=== PATIENT | female | born 1945 | race Caucasian/White ===

== ENCOUNTER 2017-05-22 10:53 | Emergency (ER) | payer OTHER ==
[2017-05-22 11:08] VITALS: BP 155/101; BMI 35.2
--- NOTE | 2017-05-22 11:11 | PDOC ---
History of Present Illness - General Chief Complaint: CVA/TIA Stated Complaint: FACIAL DROOP, SLURRED SPEECH Time Seen by Provider: 05/22/17 11:10 History Source: Patient, Family Exam Limitations: No Limitations - History of Present Illness Initial Comments: 05/22/17 11:44 Pt is a 71 yo F with PMHx of disc trauma s/p remote fall now presenting with facial droop x 1 day and increased R eye burning. The pt was sitting up yesterday at 8.30am in [place] writing when she suddenly noticed drooping of her mouth to the L side with slurring of speech. There was no loss of consciousness, no seizures, no fever, no hx of hearing impairment or bug bite. Pt denies loss of sensation on the face. This morning, she noticed redness and stinging of her R eye, which was not present earlier. She immediately called her PMD in the and daughter, but did not seek health care in [facility]. She was immediately booked for a flight and arrived this am to the ED from the airport. Pt describes a new onset shoulder discomfort which she thinks is stress related. No fever, no palpitations, SOB, orthopnea, PND, pedal edema or CP. No dysuria or flank pain, no abdominal pain, nausea or vomiting. Pt has had weakness of the L side of her body since her work related injury in 2007 with damage to her S1 disc and had a recent mechanical fall one month ago while in [facility], due to the weakness. No previous CAD, HTN hx, but px has been noted to be prediabetic. She has more than a 40year/pack hx of cigarettes but quit 10years ago. Px is not on anticoagulation or aspirin but has been using NSAIDs for the chronic pain in the R knee since the fall. Timing/Duration: 24 hours Severity: mild Associated Symptoms: reports: cough. denies: chest pain, fever/chills, loss of appetite, nausea/vomiting, rash, seizure, shortness of breath, syncope Past History - Travel Traveled outside of the country in the last 30 days: Yes If so, where?: [place], came in this am Close contact w/someone who was outside of country & ill: No - Past Medical History Allergies/Adverse Reactions: Allergies Allergy/AdvReac Type Severity Reaction Status Date / Time Penicillins Allergy Verified 05/22/17 11:01 Home Medications: Ambulatory Orders Ocular Lubricant Ophth Oint [Lacri-Lube S.o.p -] 1 applic OD TID PRN #7 tube predniSONE [Deltasone -] 60 mg PO DAILY 3 Days #3 tablet 05/22/17 CVA: No COPD: No Psychiatric Problems: Yes (anxiety) Other medical history: left sided weakness s/p back injury s1,l3,l4,l5 - Surgical History Abdominal Surgery: Yes (ectopic ) - Suicide/Smoking/Psychosocial Hx Smoking History: Never smoked Have you smoked in the past 12 months: No Information on smoking cessation initiated: No Hx Alcohol Use: No Drug/Substance Use Hx: No Substance Use Type: None Review of Systems - Review of Systems Able to Perform ROS?: Yes Is the patient limited Greek proficient: No Constitutional: Yes: Weakness (R side of face). No: Chills, Diaphoresis, Fever , Loss of Appetite, Night Sweats HEENTM: Yes: Recent change in vision (dry and red R eye). No: Blurred Vision, Tearing, Nose Congestion, Nose Bleeding, Hearing Loss, Throat Pain Respiratory: Yes: Cough. No: Orthopnea, Shortness of Breath, SOB at Rest, Stridor, Wheezing, Hemoptysis Cardiac (ROS): No: Chest Pain, Edema, Palpitations, Syncope, Chest Tightness ABD/GI: No: Abdominal Distended, Difficulty Swallowing, Nausea, Poor Appetite, Vomiting : No: Burning, Dysuria, Hematuria, Incontinence Musculoskeletal: Yes: Joint Pain (R knee pain and swelling s/p fall one month ago), Joint Stiffness (Posterior discs s/p fall 10years ago) Integumentary: No: Bruising Neurological: Yes: Weakness (weakness of R side of face). No: Headache, Paresthesia, Seizure, Tremors *Physical Exam - Vital Signs Last Vital Signs Temp Pulse Resp BP Pulse Ox 98.3 F 98 H 16 155/101 100 05/22/17 11:01 05/22/17 11:01 05/22/17 11:01 05/22/17 11:01 05/22/17 11:01 - Physical Exam General Appearance: Yes: Appropriately Dressed. No: Apparent Distress HEENT: positive: Muffled/Hoarse voice (slurred speech ), Hearing Grossly Normal , Other (dry R eye). negative: Nasal Congestion, Sinus Tenderness Neck: positive: Supple Respiratory/Chest: positive: Lungs Clear, Normal Breath Sounds. negative: Rales , Wheezing Cardiovascular: positive: Regular Rate, S1, S2, Tachycardia Gastrointestinal/Abdominal: positive: Normal Bowel Sounds, Soft. negative: Tender Musculoskeletal: negative: CVA Tenderness Integumentary: positive: Warm Neurologic: positive: Fully Oriented, Alert, Motor Strength 5/5 (On UE bilaterally, LE- L hip mild restriction, power 4/5, no drift, RLE with swollen knee, 4/5 strength) Deep Tendon Reflexes: Bicep (L): 2+, Bicep (R): 2+ ED Treatment Course - LABORATORY CBC & Chemistry Diagram: 05/22/17 13:10 05/22/17 13:10 Medical Decision Making - Medical Decision Making 05/22/17 12:36 Pt is 66, with over a 40pack year smoking hx, quit 10years ago, and prediabetic. 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 Will do an EKG, CXR, CBC, CMP, trops, She also requested an MRI, saying that she got an Xray done for her R knee in [place] I explained to her that she most likely has osteoarthritis of the R knee after the fall and injury a month earlier and an MRI is not the first line and will likely not change mx for her which should be pain control and following up with a child neurologist as an outpx she is willing to be referred to a child neurologist at discharge 2mg iv morphine given 05/22/17 13:10 05/22/17 14:55 CBC, CMP, Xray of knee, CXR did not show acute pathology Plan is to discharge on prednisone, to follow up with PCP and give consult for child neurologist *DC/Admit/Observation/Transfer Diagnosis at time of Disposition: Ulloa's paralysis - Discharge Dispostion Disposition: HOME Admit: No - Prescriptions Prescriptions: Ocular Lubricant Ophth Oint [Lacri-Lube S.o.p -] 1 applic OD TID PRN #7 tube PRN Reason: Dry Eyes predniSONE [Deltasone -] 60 mg PO DAILY 3 Days #3 tablet - Referrals Referrals: Zoila Sinha [Primary Care Provider] - Bryson Sellers MD [Staff Physician] - 14 days - Patient Instructions Printed Discharge Instructions: DI for Ulloa's Palsy Additional Instructions: You were seen here for weakness of the R side of your face. We did tests on you that showed you did not have a stroke. We made an assessment of Ulloa's Palsy. You are to take 60mg of Prednisone (steroid) by mouth for the next 3 days. You already received a dose of prednisone for today, so resume the next dose tomorrow. You may exercise your face by massaging it You may use lucrilube on your eye as artificial lubrication to reduce the dryness Follow up with your primary care doctor in a week or two For your swollen R knee, you should call Dr Sellers's office (D[facility] Assistant Teacher) to follow up for osteoarthritis If you have new worsening weakness of your face or half of your body, or have chest pain or shortness of breath, return to the emergency department - Post Discharge Activity - Attestations Physician Attestion: 05/22/17 15:24 Selina Estrada MD
--- NOTE | 2017-05-22 12:05 | PDOC ---
Attending Attestation - HPI HPI: 05/22/17 12:25 The patient is a 71 year old female, with a significant past medical history of S1 disc trauma s/p remote fall in 2007 (weakness secondary to the trauma), chronic pain in the knee, and prediabetic, who presents to the emergency department with, facial droop and associated right eye burning. As per patient , yesterday morning she was out of the country in [place] when the left sided onset of facial drooping and slurred speech. The patient reports this morning, an onset of right eye redness with associated stinging. She reports calling her PCP who advised her to come to the ED for further evaluation. She reports booking a flight and coming to the emergency department immediately post flight without seeking medical attention in the [place]. Secondary to her symptoms, the patient reports shoulder discomfort which she speculates is due to stress. She denies any hearing impairments. She denies any bug bites. She denies any loss of sensation to the face. She denies recent fevers, chills, headache or dizziness. She denies recent nausea, vomit, diarrhea or constipation. She denies recent dysuria, frequency, urgency or hematuria. She denies recent chest pain or shortness of breath. Allergies: Penicillins. Past surgical history: None reported. Social history: Former Smoker (Quit 10 years ago, smoker for 40 years). Denies EtOH use and recreational drug use. <Shahid Farris - Last Filed: 05/22/17 12:25> - Resident Resident Name: Selina Estrada I - ED Attending Attestation I have performed the following: I have examined & evaluated the patient, The case was reviewed & discussed with the resident, I agree w/resident's findings & plan, Exceptions are as noted - Physicial Exam PE: GENERAL: Awake, alert, and fully oriented, in no acute distress HEAD: No signs of trauma EYES: PERRLA, EOMI, sclera anicteric, conjunctiva clear ENT: Auricles normal inspection, hearing grossly normal, nares patent, oropharynx clear without exudates. Moist mucosa NECK: Normal ROM, supple, no lymphadenopathy, JVD, or masses LUNGS: Breath sounds equal, clear to auscultation bilaterally. No wheezes, and no crackles HEART: Regular rate and rhythm, normal S1 and S2, no murmurs, rubs or gallops ABDOMEN: Soft, nontender, normoactive bowel sounds. No guarding, no rebound. No masses EXTREMITIES: Normal range of motion, no edema. No clubbing or cyanosis. No cords, erythema, or tenderness NEUROLOGICAL: R facial droop sparing forehead. Remainder of neuro exam wnl. SKIN: Warm, Dry, normal turgor, no rashes or lesions noted. 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 Lacrilube for eye discomfort. Recommended taping it shut at night if it is hard to sleep. <Soila Pacheco - Last Filed: 05/22/17 13:01> Attestations - Attestations 05/22/17 12:25 Documentation prepared by Shahid Farris, acting as medical technician assistant for Soila Pacheco MD. <Shahid Farris - Last Filed: 05/22/17 12:25>
[2017-05-22] MEDS ORDERED: OCULAR LUBRICANT OPHTHALMIC OINTMENT 7 GM TUBE OD ONE (12:09)
[2017-05-22] MEDS ORDERED: predniSONE 20 MG TABLET (UD) PO ONE (12:12)
[2017-05-22] MEDS ORDERED: OCULAR LUBRICANT OPHTHALMIC OINTMENT 7 GM TUBE OU ONE (12:14)
[2017-05-22] MEDS ORDERED: predniSONE 20 MG TABLET (UD) ONE (12:52)
[2017-05-22] MEDS ORDERED: morphine CARPU-JECT 2 MG/1 ML DISP.SYRIN IVPUSH ONE ×2 (12:53→15:30)
[2017-05-22] MEDS ORDERED: morphine SULFATE 4 MG/ML VIAL ONE (13:02)
[2017-05-22 13:39] LABS: BASO % 1.2 % (0-2.0); HEMOGLOBIN 13.9 GM/dL (10.7-15.3); LYMPH % 34.1 % (8-40); MCHC 33.1 g/dl (32.0-36.0); MEAN CELL VOLUME 84.5 fl (80-96); MEAN PLT VOLUME 9.4 fl (7.5-11.1); MONO % 4.8 % (3.8-10.2); NEUT % 56.9 % (42.8-82.8); PLATELET COUNT 342 K/MM3 (134-434); RBC 4.98 M/mm3 (3.60-5.2); RDW 14.2 % (11.6-15.6); WHITE BLOOD COUNT 9.5 K/mm3 (4.0-10.0)
[2017-05-22 14:05] LABS: ALK PHOS 155 U/L (45-117); ANION GAP 8 (8-16); BILIRUBIN,TOTAL 0.3 mg/dL (0.2-1.0); BLOOD UREA NITROGEN 15 mg/dL (7-18); CALCIUM 9.7 mg/dL (8.5-10.1); CHLORIDE 106 mmol/L (98-107); CO2 26 mmol/L (21-32); CREATININE 0.6 mg/dL (0.55-1.02); GLUCOSE,RANDOM 139 mg/dL (74-106); SGOT/AST 32 U/L (15-37); SGPT/ALT 44 U/L (12-78); SODIUM 140 mmol/L (136-145); TOT PROT 7.8 g/dl (6.4-8.2)
[2017-05-22 15:20] VITALS: PULSE 93; TEMP 97.9
[2017-05-22] MEDS ORDERED: OCULAR LUBRICANT OPHTHALMIC OINTMENT 7 GM TUBE OD PRN (15:21)
[2017-05-22] MEDS ORDERED: MORPHINE SULFATE 10 MG/1 ML *VIAL ONE (15:30)
[2017-05-23] MEDS ORDERED: predniSONE 20 MG TABLET (UD) PO SCH (10:00)
--- NOTE | 2017-05-23 12:25 | EKG ---
Test Reason : Blood Pressure : / mmHG Vent. Rate : 085 BPM Atrial Rate : 085 BPM P-R Int : 158 ms QRS Dur : 074 ms QT Int : 402 ms P-R-T Axes : 050 008 079 degrees QTc Int : 478 ms NORMAL SINUS RHYTHM POSSIBLE INFERIOR INFARCT , AGE UNDETERMINED ABNORMAL ECG NO PREVIOUS ECGS AVAILABLE Confirmed by HADLEY CORONADO MD ([id number]) on 05/23/2017 12:25:28 PM Referred By: Confirmed By:HADLEY CORONADO MD
[2017-05-29] MEDS ORDERED: predniSONE 20 MG TABLET (UD) PO SCH (10:00)
[2017-05-31] MEDS ORDERED: predniSONE 20 MG TABLET (UD) PO SCH (10:00)
== END 2017-05-22 15:46 | disposition home or self-care (01) ==
LOC: JER 10:53
DX: G51.0 Bell's palsy (principal); R73.03 Prediabetes; F41.9 Anxiety disorder, unspecified; R53.1 Weakness; M25.569 Pain in unspecified knee; G89.29 Other chronic pain
CPT/HCPCS: 36415; 70450-TC; 71045-TC-FY; 73562-TC-RT-FY; 80053; 82962; 84484; 85025; 93005; 93010; 99283-25

== ENCOUNTER 2017-11-17 08:36 | Day surgery (SDC) | payer OTHER ==
[2017-11-11 12:29] VITALS: BMI 35.3
--- NOTE | 2017-11-17 09:28 | OP ---
Operative Note - Note: Operative Date: 11/17/17 Pre-Operative Diagnosis: right knee osteochondral lesion and meniscal tear Operation: right knee arthroscopy with partial medial meniscectomy, drilling of osteochondral lesion Post-Operative Diagnosis: Same as Pre-op Surgeon: Bruno Acosta Anesthesiologist/COUNSELING CENTER DIRECTOR: Jason Cottrell Anesthesia: General Operative Report Dictated: Yes
[2017-11-17] MEDS ORDERED: MIDAZOLAM HCL 2 MG/2 ML SINGLE DOSE VIAL ONE (10:56)
[2017-11-17] MEDS ORDERED: PROPOFOL 20 ML ONE (10:56)
[2017-11-17] MEDS ORDERED: LIDOCAINE HCL 2% JELLY (5 ML/TUBE) ONE (11:13)
[2017-11-17] MEDS ORDERED: DEXAMETHASONE SOD PHOSPHATE 4 MG/1 ML VIAL ONE (11:18)
[2017-11-17] MEDS ORDERED: KETOROLAC TROMETHAMINE 30 MG/1 ML VIAL ONE (11:18)
[2017-11-17] MEDS ORDERED: ONDANSETRON 4 MG/2 ML VIAL ONE (11:18)
[2017-11-17] MEDS ORDERED: ceFAZolin SODIUM 1 GM VIAL ONE (11:18)
[2017-11-17] MEDS ORDERED: NITROGLYCERIN SUBLINGUAL 1/150 0.4 MG TAB SL ONE (12:00)
[2017-11-17] MEDS ORDERED: MORPHINE SULFATE 2 MG/ML VIAL IVPUSH PRN (12:00)
[2017-11-17] MEDS ORDERED: ASPIRIN 81 MG CHEWABLE TABLETS PO ONE (12:00)
[2017-11-17] MEDS ORDERED: METOPROLOL TARTRATE 5 MG/5 ML VIAL IVPUSH ONE (12:00)
[2017-11-17] MEDS ORDERED: CALCIUM GLUCONATE 10% - 1,000 MG/10 ML VIAL ONE (12:19)
[2017-11-17] MEDS ORDERED: NITROGLYCERIN SUBLINGUAL 1/150 0.4 MG TAB ONE (12:41)
[2017-11-17] MEDS: morphine CARPU-JECT 10 MG/1 ML DISP.SYRIN ONE ×2 (12:45→13:00)
[2017-11-17] MEDS ORDERED: ASPIRIN 81 MG CHEWABLE TABLETS ONE (12:45)
[2017-11-17] MEDS: METOPROLOL TARTRATE 5 MG/5 ML VIAL ONE ×2 (12:50→12:55)
--- NOTE | 2017-11-17 12:58 | OP ---
DATE OF OPERATION: 11/17/2017 SURGEON: Bruno Acosta MD PREOPERATIVE DIAGNOSIS: Right knee meniscal tear, osteochondral lesion. POSTOPERATIVE DIAGNOSIS: Right knee meniscal tear, osteochondral lesion. PROCEDURE: Right knee arthroscopy with partial medial meniscectomy, subchondral drilling of osteochondral lesion. INDICATIONS: This is a pleasant 72-year-old female who has been suffering from medial right knee pain. Despite extensive conservative care, she failed to improve. Treatment options were discussed including nonoperative management, continuation with further injections, medications, therapy, activity modification, protective weightbearing. We discussed operative management with arthroscopy. I reiterated that this is not a curative procedure for the arthritis, rather trying to give her comfort for some time, so that she can put off having a total knee replacement. I reviewed the recovery from surgery. I reviewed surgical risks such as bleeding, infection, neurovascular injury, need for further surgery, postoperative pain or stiffness, progression of arthritis. We discussed medical risks such as heart attack, stroke, DVT, PE, and . I reviewed the perioperative use of antibiotics and DVT prophylaxis. I addressed all the patients questions and concerns. She voiced understanding and elected to proceed. DESCRIPTION OF PROCEDURE: The patient was brought to the operating room where general anesthesia was administered. She was prepped and draped in the usual sterile fashion. A preoperative dose of antibiotics was given, and the usual time-out procedure was performed. The right lower extremity was then marked out. Portal sites were injected subcutaneously with 0.25% Marcaine. The lateral portal was established using an 11 blade. The arthroscope was now passed into the knee joint. Examination of the patellofemoral joint demonstrated diffuse high grade partial chondral thickness loss. Passing the arthroscope into the medial compartment, a medial portal was established under spinal needle localization. Medial compartment demonstrated diffuse moderate articular change with high grade partial thickness chondral loss. An osteochondral lesion was noted in the more anterior portion of the medial femoral condyle. This was debrided of the overlying unstable cartilage. The meniscus was noted to have a high grade radial tear at the posterior horn. This was debrided utilizing meniscal biters and a shaver. The lateral compartment was inspected demonstrating no significant articular wear and no meniscal tear. The arthroscope was now passed back into the medial side. Here, 0.062 and 0.045 K-wires were used to create subchondral drilling into the area of the osteochondral lesion. At this point, the excess fluid was withdrawn from the joint. The portals were sutured using 3-0 nylon. Sterile dressings were placed. The patient was extubated and transferred to the recovery room in stable condition. Jaquan CORONA/[id number]
--- NOTE | 2017-11-17 14:55 | CON.CARD ---
Consult Consult Specialty:: Cardiology Referred by:: Anita Reason for Consultation:: chest tightness, bradycardia - History of Present Illness Chief Complaint: chest tightness History of Present Illness: 72F h/o DM, anxiety, depression p/w bradycardia, chest tightness after arthroscopic knee surgery today. Did well during surgery, no events, per report from Dr. Howard, anesthesiologist and PACU staff, pt was hypotensive after surgery during recovery 89/47 with HR 70s-80s, became more hypotensive and HR dropped to 40s. Tele strips not available from that time, reviewing vital signs strip HR slowly decreased from 80 to 60. In this time recorded BPs 60s/ 40s, improved with ephedrine however HR initially continued to decrease to 48 bpm. reviewed tele strip print out showing four beats of junctional rhythm with aberrant conduction followed by sinus rhythm. 12 lead EKG sinus rhythm. Patient no longer complaining of chest tightness or shortness of breath, initial trop negative. - History Source History Provided By: Patient - Past Medical History Endocrine: Yes: Diabetes Mellitus - Alcohol/Substance Use Hx Alcohol Use: No - Smoking History Smoking history: Former smoker Have you smoked in the past 12 months: No If you are a former smoker, when did you quit?: 1980S Home Medications - Allergies Allergies/Adverse Reactions: Allergies Allergy/AdvReac Type Severity Reaction Status Date / Time Penicillins Allergy Intermediate Itching Verified 11/17/17 09:40 - Home Medications Home Medications: Ambulatory Orders Amitriptyline HCl [Elavil -] 10 mg PO HS 11/11/17 Diazepam [Valium] 5 mg PO HS 11/11/17 Gabapentin 300 mg PO TID 11/11/17 Metformin HCl [Metformin HCl ER] 1,000 mg PO BID 11/11/17 Nabumetone 750 mg PO BID 11/11/17 Zolpidem Tartrate [Ambien] 5 mg PO HS 11/11/17 Family Disease History - Family Disease History Family History: Unremarkable Review of Systems - Review of Systems Constitutional: reports: No Symptoms Eyes: reports: No Symptoms HENT: reports: No Symptoms Neck: reports: No Symptoms Cardiovascular: reports: Chest Pain, Shortness of Breath Respiratory: reports: No Symptoms Gastrointestinal: reports: No Symptoms Genitourinary: reports: No Symptoms Musculoskeletal: reports: No Symptoms Integumentary: reports: No Symptoms Neurological: reports: No Symptoms Endocrine: reports: No Symptoms Hematology/Lymphatic: reports: No Symptoms Psychiatric: reports: No Symptoms Vital Signs: Vital Signs Temperature 97.9 F 11/17/17 13:40 Pulse Rate 94 H 11/17/17 14:30 Respiratory Rate 16 11/17/17 14:30 Blood Pressure 117/77 11/17/17 14:30 O2 Sat by Pulse Oximetry (%) 97 11/17/17 14:30 Constitutional: Yes: Well Nourished, No Distress, Calm Eyes: Yes: Conjunctiva Clear, EOM Intact HENT: Yes: Atraumatic, Normocephalic Neck: Yes: Supple, Trachea Midline Respiratory: Yes: Regular, CTA Bilaterally Gastrointestinal: Yes: Normal Bowel Sounds, Soft Cardiovascular: Yes: Regular Rate and Rhythm JVD: No Carotid Bruit: No Heart Sounds: Yes: S1, S2 Musculoskeletal: No: Back Pain Extremities: No: Cyanosis, Erythema Edema: No Peripheral Pulses: 2+ Left Doralis Pedis, 2+ Right Dorsalis Pedis Integumentary: No: Jaundice Neurological: Yes: Alert, Oriented ...Motor Strength: WNL Psychiatric: Yes: Alert, Oriented - Other Data Labs, Other Data: Troponin, BNP 11/17/17 13:10 Troponin I < 0.03 Troponin, BNP 11/17/17 13:10 Troponin I < 0.03 Assessment/Plan EKG 11/17/17 sinus tachycardia, old inferior infarct tele: 4 beats wide complex junctional rhythm followed by sinus rhythm 72F h/o DM, anxiety, depression p/w bradycardia, chest tightness after arthroscopic knee surgery bradycardia, chest tightness, hypotension - may be vagal response vs 2/2 anesthesia in post operative setting vs electrolyte abnormality - trop neg x 1, patient to be admitted to tele for rule out - BP, HR stable now, CP resolved - echo ordered - check lytes, pending DM - manage per primary - on metformin at home s/p knee surgery - manage per primary
[2017-11-17] MEDS ORDERED: CALCIUM CHLORIDE 1 GM/10 ML *DISP.SYRIN IVPUSH ONE (16:42)
[2017-11-17] MEDS ORDERED: ePHEDrine SULFATE 50 MG/1 ML AMPULE IVPUSH PRN (16:43)
[2017-11-17] MEDS ORDERED: PROMETHAZINE HCL 25 MG/1 ML VIAL IVPB PRN (16:45)
[2017-11-17] MEDS ORDERED: ONDANSETRON 4 MG/2 ML VIAL IVPUSH PRN (16:45)
[2017-11-17] MEDS ORDERED: ACETAMINOPHEN 325 MG TABLET (FP) PO PRN (17:12)
[2017-11-17 19:50] LABS: BASO % 0.3 % (0-2.0); HEMATOCRIT 38.2 % (32.4-45.2); HEMOGLOBIN 12.4 GM/dL (10.7-15.3); LYMPH % 11.2 % (8-40); MCH 27.9 pg (25.7-33.7); MCHC 32.4 g/dl (32.0-36.0); MEAN PLT VOLUME 10.4 fl (7.5-11.1); MONO % 0.7 % (3.8-10.2); NEUT % 87.8 % (42.8-82.8); PLATELET COUNT 252 K/MM3 (134-434); RBC 4.44 M/mm3 (3.60-5.2); RDW 14.6 % (11.6-15.6); WHITE BLOOD COUNT 8.2 K/mm3 (4.0-10.0)
[2017-11-17 20:23] LABS: ANION GAP 10 MMOL/L (8-16); BLOOD UREA NITROGEN 14 mg/dL (7-18); CALCIUM 9.9 mg/dL (8.5-10.1); CHLORIDE 110 mmol/L (98-107); CO2 21 mmol/L (21-32); CREATININE 0.9 mg/dL (0.55-1.3); GLUCOSE,RANDOM 235 mg/dL (74-106); POTASSIUM 4.9 mmol/L (3.5-5.1); SODIUM 141 mmol/L (136-145)
[2017-11-17] MEDS: oxyCODONE HCL 5 MG TABLET PO PRN (20:50)
[2017-11-17] MEDS: ACETAMINOPHEN 325 MG TABLET (FP) PO PRN (20:52)
[2017-11-17] MEDS ORDERED: diazePAM 5 MG TABLET PO PRN (22:00)
[2017-11-17] MEDS ORDERED: AMITRIPTYLINE HCL 10 MG TABLET (FP) PO SCH (22:00)
[2017-11-17] MEDS ORDERED: ZOLPIDEM TARTRATE 5 MG TABLET PO PRN (22:00)
[2017-11-17] MEDS: GABAPENTIN 300 MG CAPSULE (FP) PO SCH (22:28)
[2017-11-18] MEDS: metFORMIN HCL 500 MG TABLET (FP) PO SCH ×2 (06:12→16:37)
[2017-11-18] MEDS: GABAPENTIN 300 MG CAPSULE (FP) PO SCH ×2 (06:12→13:50)
[2017-11-18] MEDS: ACETAMINOPHEN 325 MG TABLET (FP) PO PRN ×2 (08:10→16:37)
[2017-11-18] MEDS: oxyCODONE HCL 5 MG TABLET PO PRN ×2 (08:12→16:38)
[2017-11-18 08:51] VITALS: PULSE 95
[2017-11-18] MEDS ORDERED: ENOXAPARIN NA (PORCINE) 40 MG/0.4 ML DISP.SYRIN SQ SCH (10:00)
--- NOTE | 2017-11-18 11:16 | PN ---
Progress Note (short form) - Note Progress Note: s: no cp sob palps dizzy o: Vital Signs Period Temp Pulse Resp BP Sys/Grover Pulse Ox Last 24 Hr 97.9 F-98.7 F 49-113 11-22 63-174/47-90 95-99 Constitutional: Yes: Well Nourished, No Distress, Calm Eyes: Yes: Conjunctiva Clear Respiratory: Yes: Regular, CTA Bilaterally Gastrointestinal: Yes: Normal Bowel Sounds, Soft Cardiovascular: Yes: Regular Rate and Rhythm Heart Sounds: Yes: S1, S2 Musculoskeletal: No: Back Pain Extremities: No: Cyanosis, Erythema Edema: No Integumentary: No: Jaundice diaphoresis Neurological: Yes: Alert, Oriented Current Medications Generic Name Dose Route Start Last Admin Trade Name Freq PRN Reason Stop Dose Admin Acetaminophen 650 mg 11/17/17 17:12 Tylenol - PO Q6H PRN PAIN Acetaminophen 325 mg 11/17/17 18:05 11/18/17 08:10 Tylenol - PO 325 mg Q6H PRN Administration PAIN LEVEL Amitriptyline HCl 10 mg 11/17/17 22:00 11/17/17 22:28 Elavil - PO 10 mg HS NIKA Administration Diazepam 5 mg 11/17/17 22:00 11/17/17 22:28 Valium - PO 5 mg HS PRN Administration INSOMNIA Enoxaparin Sodium 40 mg 11/18/17 10:00 11/18/17 10:10 Lovenox - SQ 40 mg DAILY NIKA Administration Ephedrine Sulfate 12.5 mg 11/17/17 16:43 Ephedrine Sulfate - IVPUSH ONCE PRN hypotension Fentanyl 50 mcg 11/17/17 16:45 Sublimaze Injection - IVPUSH [id number] PRN PAIN-PACU ORDER X 4 DOSES ONLY Gabapentin 300 mg 11/17/17 22:00 11/18/17 06:12 Neurontin - PO 300 mg TID NIKA Administration Cefazolin Sodium 1 gm/ 50 mls @ 100 mls/hr 11/18/17 21:00 Dextrose IVPB 11/19/17 20:59 Q8H [facility] Insulin Aspart 1 vial 11/18/17 16:30 Novolog Vial Sliding Scale - SQ BIDAC [facility] Protocol Metformin HCl 1,000 mg 11/18/17 07:00 11/18/17 06:12 Glucophage - PO 1,000 mg BIDAC NIKA Administration Morphine Sulfate 1 mg 11/17/17 12:00 Morphine Sulfate IVPUSH Q10M PRN PAIN-PACU Ondansetron HCl 4 mg 11/17/17 16:45 Zofran Injection IVPUSH Q6H PRN NAUSEA AND/OR VOMITING Oxycodone HCl 5 mg 11/17/17 18:05 11/18/17 08:12 Roxicodone - PO 5 mg Q6H PRN Administration PAIN LEVEL Promethazine HCl 12.5 mg 11/17/17 16:45 Phenergan Injection - IVPB Q6H PRN NAUSEA-FOR RESCUE AFTER 15 MIN Zolpidem Tartrate 5 mg 11/17/17 22:00 11/17/17 22:28 Ambien - PO 5 mg HS PRN Administration INSOMNIA CBC, BMP 11/17/17 19:20 11/17/17 19:20 Assessment/Plan EKG 11/17/17 sinus tachycardia, old inferior infarct tele: sr 72F h/o DM, anxiety, depression p/w bradycardia, chest tightness after arthroscopic knee surgery bradycardia, chest tightness, hypotension - may be vagal response vs 2/2 anesthesia in post operative setting vs electrolyte abnormality - trop neg x 2, no signs acs - BP, HR stable now, CP resolved - tele benign - echo pending, if benign then ok for dc from cardiac pov DM - manage per primary - on metformin at home s/p knee surgery - manage per primary
--- NOTE | 2017-11-18 11:50 | ECHO ---
Name: QIAN MARTINEZ Exam:Adult Echocardiogram Study Date: 11/18/2017 10:34 AM Age: 72 yrs Reason For Study: Chest tightness, bradycardia Height: 61 in Weight: 187 lb BSA: 1.8 m2 MMode/2D Measurements & Calculations IVSd: 1.0 cm Ao root diam: 2.2 cm LVIDd: 2.9 cm LA dimension: 2.1 cm LVIDs: 2.0 cm LVPWd: 0.91 cm EDV(Teich): 32.1 ml LVOT diam: 1.7 cm ESV(Teich): 12.7 ml RV S Noah: 13.7 cm/sec Doppler Measurements & Calculations Med Peak E' Noah: 6.7 cm/sec Lat Peak E' Noah: 5.2 cm/sec Procedure The study was technically difficult with many images being suboptimal in quality. Left Ventricle Left ventricular systolic function is grossly normal. Ejection Fraction = 50-55%. Regional wall motio n abnormalities cannot be excluded due to limited visualization. Right Ventricle The right ventricle is grossly normal size. The right ventricular systolic function is grossly normal . Atria Normal left and right atrial size and function. Mitral Valve The mitral valve is normal in structure and function. There is no mitral valve stenosis. There is tra ce mitral regurgitation. Tricuspid Valve The tricuspid valve is not well visualized, but is grossly normal. There is mild tricuspid regurgitat ion. Aortic Valve The aortic valve is not well visualized. No hemodynamically significant valvular aortic stenosis. Pulmonic Valve The pulmonic valve is not well seen, but is grossly normal. There is no pulmonic valvular stenosis. Great Vessels The aortic root is normal size. Pericardium/Pleura There is no pericardial effusion. Interpretation Summary The study was technically difficult with many images being suboptimal in quality. Regional wall motion abnormalities cannot be excluded due to limited visualization. Left ventricular systolic function is grossly normal. Ejection Fraction = 50-55%. There is trace mitral regurgitation. There is mild tricuspid regurgitation. The aortic root is normal size. There is no pericardial effusion. MD Luis Calles 11/18/2017 11:49 AM
--- NOTE | 2017-11-18 11:54 | PN ---
Progress Note (short form) - Note Progress Note: 72F POD1 s/p knee arthroscopy under GA-LMA resting comfortably in bed. Post op pt had what was likely a vagal episode marked by bradycardia, hypotension, and chest tightness in the PACU. Episode resolved with symptomatic management. EKG, enzymes and ECHO unremarkable. Cardiology consult much appreciated, agree with plan to d/c from telemetry.
[2017-11-18 14:54] VITALS: BP 124/69; TEMP 98.4
--- NOTE | 2017-11-18 16:28 | PN ---
Progress Note (short form) - Note Progress Note: Pt lying comf in bed. AF VSS RLE dressings CDI sens int to LT 2+ dp ehl fhl ta g s intact a/p: POD 1 R knee arthroscopy -pt's observation uneventful overnight -pt was cleared by cards to go home -dc today -follow up 1 week in office
[2017-11-18] MEDS ORDERED: INSULIN SLIDING SCALE (NOVOLOG) 1 VIAL SQ SCH (16:30)
[2017-11-18] MEDS ORDERED: CEFAZOLIN 1 GM in DEXTROSE 5%-WATER - 50 ML IVPB SCH (21:00)
--- NOTE | 2017-11-26 18:08 | EKG ---
Test Reason : Blood Pressure : / mmHG Vent. Rate : 102 BPM Atrial Rate : 102 BPM P-R Int : 164 ms QRS Dur : 064 ms QT Int : 374 ms P-R-T Axes : 039 005 078 degrees QTc Int : 487 ms POOR DATA QUALITY, INTERPRETATION MAY BE ADVERSELY AFFECTED SINUS TACHYCARDIA INFERIOR INFARCT (CITED ON OR BEFORE 22-MAY-2017) ABNORMAL ECG WHEN COMPARED WITH ECG OF 22-MAY-2017 13:11, NO SIGNIFICANT CHANGE WAS FOUND Confirmed by JOANN FIGUEROA MD ([id number]) on 11/26/2017 6:08:09 PM Referred By: Bruno Acosta Confirmed By:JOANN FIGUEROA MD
== END 2017-11-18 17:48 | disposition home health service (06) ==
LOC: FASU 08:36 → J4W 16:20 → FASU 11-18 17:48
PROVIDERS: ATTEND Orthopaedic Surgery Sports Medicine
PROC: 0SBC4ZZ Excision of Right Knee Joint, Percutaneous Endoscopic Approach (ICD-10-PCS; 2017-11-17)
PROC: 0SQC4ZZ Repair Right Knee Joint, Percutaneous Endoscopic Approach (ICD-10-PCS; principal; 2017-11-17 11:27)
DX: S83.241A Other tear of medial meniscus, current injury, right knee, initial encounter (principal); M94.261 Chondromalacia, right knee; X58.XXXA Exposure to other specified factors, initial encounter; Y93.9 Activity, unspecified; Y92.9 Unspecified place or not applicable
CPT/HCPCS: 36415; 80048; 82550; 82962; 84484; 85025; 93005; 93306-TC; 94760; 97116-GP; 97161-GP